=== PATIENT | male | born 1960 | race Caucasian/White ===

== ENCOUNTER 2022-09-18 08:32 | Outpatient (CLI) | payer OTHER, SELFPAY ==
[2022-09-18 14:47] LABS: Albumin* 4.5 g/dL (3.3-5.0); Chloride* 108 mmol/L (96-114)
[2022-09-18 14:48] LABS: Sodium* 141 mmol/L (135-149)
[2022-09-18 14:50] LABS: Alkaline Phosphatase* 92 U/L (40-150); Aspartate Amino Transferase* 34 U/L (12-35); Bilirubin Total* 0.6 mg/dL (0.1-1.5); Blood Urea Nitrogen* 16 mg/dL (7-30); Carbon Dioxide* 23 mmol/L (20-32); Cholesterol* 168 mg/dL (90-199); Creatinine* 0.7 mg/dL (0.5-1.5); Estimated Glomerular Filt Rate 105 ml/min; Glucose* 110 mg/dL (60-115); Total Protein* 7.2 g/dL (6.0-8.3)
[2022-09-18 14:51] LABS: Alanine Aminotransferase* 53 U/L (4-50); Calcium* 9.7 mg/dL (8.4-10.6); HDL Cholesterol* 40 mg/dL (>=40); Potassium* 4.5 mmol/L (3.6-5.1)
[2022-09-18 14:57] LABS: LDL Cholesterol Calculated 93 mg/dL (<100); Triglycerides* 173 mg/dL (40-149)
[2022-09-18 15:21] LABS: PSA Screen* 0.21 ng/mL (0.10-4.00)
[2022-09-18 15:36] LABS: HIV 1/2/P24 Combo Screen* Negative (Negative)
[2022-09-18 15:38] LABS: Hepatitis C Virus Antibody* Negative (Negative)
[2022-09-18 19:14] LABS: Chlamydia DNA Amplified* NOT DETECTED (No Detected); GC DNA Amplified* NOT DETECTED (No Detected)
[2022-09-20 07:58] LABS: Rapid Plasma Reagin (RPR) Non Reactive (Non Reactive)
== END 2022-09-18 08:33 | disposition home or self-care (01) ==
PROVIDERS: Family Medicine; Visit Provider Family Medicine
DX: Z00.00 Encounter for general adult medical examination without abnormal findings (principal); I10 Essential (primary) hypertension; E78.5 Hyperlipidemia, unspecified; Z11.3 Encounter for screening for infections with a predominantly sexual mode of transmission; Z12.5 Encounter for screening for malignant neoplasm of prostate; Z11.59 Encounter for screening for other viral diseases
CPT/HCPCS: 80053; 80061; 84153; 86592; 86703; 86803; 87491; 87591

== ENCOUNTER 2022-10-16 09:23 | Outpatient (CLI) | payer OTHER, SELFPAY | END 2022-10-16 09:24 | disposition home or self-care (01) | PROVIDERS: PCP Family Medicine; Visit Provider Surgery | DX: Z86.010 Personal history of colon polyps (principal); K63.5 Polyp of colon | CPT/HCPCS: 45385; 88305; 99153; J2250; J3010 ==

== ENCOUNTER 2024-01-23 16:12 | Outpatient (CLI) | payer OTHER, SELFPAY | END 2024-01-23 16:13 | disposition home or self-care (01) | PROVIDERS: PCP Family Medicine; Visit Provider Physician Assistant Medical | DX: Z00.00 Encounter for general adult medical examination without abnormal findings (principal); E11.9 Type 2 diabetes mellitus without complications; E78.5 Hyperlipidemia, unspecified; I10 Essential (primary) hypertension; R53.83 Other fatigue; Z12.5 Encounter for screening for malignant neoplasm of prostate; Z11.59 Encounter for screening for other viral diseases; Z13.0 Encounter for screening for diseases of the blood and blood-forming organs and certain disorders involving the immune mechanism; Z13.6 Encounter for screening for cardiovascular disorders | CPT/HCPCS: 80053; 80061; 84443; 86703; 86803; G0103 ==

== ENCOUNTER 2024-03-10 15:47 | Outpatient (CLI) | payer OTHER, SELFPAY | END 2024-03-10 15:48 | disposition home or self-care (01) | PROVIDERS: PCP Family Medicine; Visit Provider Physician Assistant Medical | DX: I10 Essential (primary) hypertension (principal); E11.9 Type 2 diabetes mellitus without complications; Z79.84 Long term (current) use of oral hypoglycemic drugs | CPT/HCPCS: 80053; 82043; 82570 ==

== ENCOUNTER 2024-05-01 08:52 | Outpatient (CLI) | payer OTHER, SELFPAY | END 2024-05-01 08:53 | disposition home or self-care (01) | LOC: NFLDREF 05-03 13:15 | PROVIDERS: PCP Family Medicine; Referring Provider Family Medicine; Visit Provider Physician Assistant Medical | DX: E78.5 Hyperlipidemia, unspecified (principal); R53.83 Other fatigue; Z13.21 Encounter for screening for nutritional disorder | CPT/HCPCS: 80061; 82607 ==

== ENCOUNTER 2024-11-27 10:23 | Outpatient (CLI) | payer OTHER, SELFPAY | END 2024-11-27 10:24 | disposition home or self-care (01) | PROVIDERS: PCP Family Medicine; Visit Provider Physician Assistant Medical | DX: D64.9 Anemia, unspecified (principal) | CPT/HCPCS: 80053; 80061; 82043; 82570; 82607; 83540; 83550; 84443 ==

== ENCOUNTER 2025-01-28 08:26 | Outpatient (CLI) | payer OTHER, SELFPAY | END 2025-01-28 08:27 | disposition home or self-care (01) | PROVIDERS: PCP Physician Assistant Medical; Visit Provider Physician Assistant Medical | DX: Z00.00 Encounter for general adult medical examination without abnormal findings (principal); Z79.899 Other long term (current) drug therapy; Z12.5 Encounter for screening for malignant neoplasm of prostate | CPT/HCPCS: 82746; G0103 ==

== ENCOUNTER 2025-04-29 08:59 | Outpatient (CLI) | payer OTHER, SELFPAY | END 2025-04-29 09:00 | disposition home or self-care (01) | LOC: NFLDREF 04-30 16:24 | PROVIDERS: PCP Physician Assistant Medical; Referring Provider Physician Assistant Medical; Visit Provider Physician Assistant Medical | DX: D64.9 Anemia, unspecified (principal) | CPT/HCPCS: 82728 ==

== ENCOUNTER 2025-05-18 07:01 | Outpatient (CLI) | payer OTHER, SELFPAY ==
--- NOTE | 2025-05-18 08:54 | P.ANES_ITS ---
Anesthesia Charges Start Date/Time Anesthesia Start Date: 05/18/25 Anesthesia Start Time: 08:08 Stop Date/Time Anesthesia Stop Date: 05/18/25 Anesthesia Stop Time: 08:50 Coding CPT Codes CPT Codes: ANES UPR LWR GI NDSC PX - 06032 ([id number]) P2 - PATIENT W/MILD SYST DISEASE, QK - SENIOR CLERK 2-4 CNCRNT ANES PROC
--- NOTE | 2025-05-18 08:54 | W.ANESCHARGE ---
Anesthesia Charges Start Date/Time Anesthesia Start Date: 05/18/25 Anesthesia Start Time: 08:08 Stop Date/Time Anesthesia Stop Date: 05/18/25 Anesthesia Stop Time: 08:50 Coding CPT Codes CPT Codes: ANES UPR LWR GI NDSC PX - 53691 ([id number]) P2 - PATIENT W/MILD SYST DISEASE, QK - AUTOMOTIVE QUALITY MANAGER 2-4 CNCRNT ANES PROC
--- NOTE | 2025-05-18 09:46 | P.ANES_ITS ---
Anesthesia Charges Start Date/Time Anesthesia Start Date: 05/18/25 Anesthesia Start Time: 08:08 Stop Date/Time Anesthesia Stop Date: 05/18/25 Anesthesia Stop Time: 08:50 Coding CPT Codes CPT Codes: ANES UPR LWR GI NDSC PX - 10435 ([id number]) P2 - PATIENT W/MILD SYST DISEASE, QK - CORE MAKER 2-4 CNCRNT ANES PROC, QX - NURSE SUPERVISOR SVC W/ MD MED DIRECTION
--- NOTE | 2025-05-18 09:46 | W.ANESCHARGE ---
Anesthesia Charges Start Date/Time Anesthesia Start Date: 05/18/25 Anesthesia Start Time: 08:08 Stop Date/Time Anesthesia Stop Date: 05/18/25 Anesthesia Stop Time: 08:50 Coding CPT Codes CPT Codes: ANES UPR LWR GI NDSC PX - 44613 ([id number]) P2 - PATIENT W/MILD SYST DISEASE, QK - EGG AND SPICE MIXER 2-4 CNCRNT ANES PROC, QX - COIN PURSE ASSEMBLER SVC W/ MD MED DIRECTION
== END 2025-05-18 07:02 | disposition home or self-care (01) ==
LOC: OP CLINIC 07:02
PROVIDERS: PCP Physician Assistant Medical; Visit Provider Internal Medicine
DX: D64.9 Anemia, unspecified (principal); K57.30 Diverticulosis of large intestine without perforation or abscess without bleeding
CPT/HCPCS: 00813; 43239; 45378; 88305; J2704; J3490

== ENCOUNTER 2025-07-29 08:47 | Outpatient (CLI) | payer OTHER, SELFPAY | END 2025-07-29 08:48 | disposition home or self-care (01) | PROVIDERS: PCP Physician Assistant Medical; Visit Provider Physician Assistant Medical | DX: D64.9 Anemia, unspecified (principal) | CPT/HCPCS: 82728 ==

== ENCOUNTER 2025-08-07 12:15 | Outpatient (CLI) | payer OTHER, SELFPAY | END 2025-08-07 12:16 | disposition home or self-care (01) | LOC: NFLDREF 08-13 06:00 | PROVIDERS: PCP Physician Assistant Medical; Referring Provider Physician Assistant Medical; Visit Provider Physician Assistant Medical | DX: A04.8 Other specified bacterial intestinal infections (principal) | CPT/HCPCS: 87338 ==